=== PATIENT | male | born 1960 | race Caucasian/White ===

== ENCOUNTER 2018-10-29 21:00 | Outpatient (CLI) | payer MEDICARE, MEDICAID | END 2018-10-29 21:01 | disposition short-term general hospital (02) | LOC: EMS 21:00 | PROVIDERS: ATTEND Surgery | DX: R58 Hemorrhage, not elsewhere classified (principal) | CPT/HCPCS: A0425; A0429; A0888 ==

== ENCOUNTER 2018-10-30 01:32 | Outpatient (CLI) | payer MEDICARE, MEDICAID | END 2018-10-30 01:33 | disposition short-term general hospital (02) | LOC: EMS 01:32 | PROVIDERS: ATTEND Surgery | DX: S91.301A Unspecified open wound, right foot, initial encounter (principal); X58.XXXA Exposure to other specified factors, initial encounter; Y92.039 Unspecified place in apartment as the place of occurrence of the external cause | CPT/HCPCS: A0425; A0429; A0888 ==

== ENCOUNTER 2019-07-02 10:47 | Outpatient (CLI) | payer MEDICARE, MEDICAID | END 2019-07-02 10:48 | disposition short-term general hospital (02) | LOC: EMS 10:47 | PROVIDERS: ATTEND Surgery | DX: R07.9 Chest pain, unspecified (principal) | CPT/HCPCS: A0425; A0429; A0888 ==

== ENCOUNTER 2019-08-09 22:57 | Outpatient (CLI) | payer MEDICARE, MEDICAID | END 2019-08-09 22:58 | disposition short-term general hospital (02) | LOC: EMS 22:57 | PROVIDERS: ATTEND Surgery | DX: M79.89 Other specified soft tissue disorders (principal) | CPT/HCPCS: A0425; A0427; A0888 ==

== ENCOUNTER 2019-09-25 18:15 | Outpatient (CLI) | payer MEDICARE | END 2019-09-25 18:16 | disposition E | LOC: EMS 18:15 | PROVIDERS: ATTEND Surgery ==